=== PATIENT | female | born 1980 | race Caucasian/White ===

== ENCOUNTER 2017-08-25 10:31 | Outpatient (CLI) | payer OTHER, SELFPAY ==
--- NOTE | 2017-08-25 13:13 | ULT ---
OB ULTRASOUND HISTORY: female. Evaluate size and dates. COMPARISON: None. TECHNIQUE: Multiplanar spencer-scale and color Doppler images were obtained in a transabdominal ultrasound. FINDINGS: A single live intrauterine is seen with a heart rate of 141 beats per minute. A aparna vey was performed, which was unremarkable. The head, intracranial structures, spine, heart, diaphra gm, kidneys, umbilical cord, umbilical cord insertion, stomach, face, and extremities were normal. The average age of the fetus based off today's examination is 19 weeks and 3 days. The following me asurements were taken and dates based off these measurements are as follows: BPD: 4.47 cm (19 weeks 4 days) HC: 16.92 cm (19 weeks 4 days) AC: 14.39 cm (19 weeks 5 days) FL: 3.07 cm (19 weeks 4 days) The placenta is fundal in location without evidence of placenta previa. Amniotic fluid volume is michel bjectively within normal limits. The cervix is normal in length. IMPRESSION: Single live intrauterine with an estimated age of 19 weeks and 3 days. POS: [facility]
== END 2017-08-25 10:32 | disposition home or self-care (01) ==
LOC: ULT 10:31
PROVIDERS: ATTEND Family Medicine
DX: O09.42 Supervision of pregnancy with grand multiparity, second trimester (principal); Z3A.19 19 weeks gestation of pregnancy
CPT/HCPCS: 76805

== ENCOUNTER 2018-01-03 13:15 | Emergency (ER) | payer MEDICAID | END 2018-01-03 13:40 | disposition home or self-care (01) | LOC: SCSER 13:15 | DX: O47.1 False labor at or after 37 completed weeks of gestation (principal); O99.343 Other mental disorders complicating pregnancy, third trimester; F41.9 Anxiety disorder, unspecified; F32.9 Major depressive disorder, single episode, unspecified; F43.10 Post-traumatic stress disorder, unspecified; O99.333 Smoking (tobacco) complicating pregnancy, third trimester; Z3A.39 39 weeks gestation of pregnancy ==

== ENCOUNTER 2020-06-14 20:47 | Emergency (ER) | payer MEDICAID, SELFPAY | END 2020-06-14 21:59 | disposition home or self-care (01) | LOC: ERS 20:47 | DX: K02.9 Dental caries, unspecified (principal); R22.0 Localized swelling, mass and lump, head; F31.9 Bipolar disorder, unspecified; F17.210 Nicotine dependence, cigarettes, uncomplicated | CPT/HCPCS: 99282 ==

== ENCOUNTER 2020-09-04 11:18 | Outpatient (CLI) | payer OTHER ==
--- NOTE | 2020-09-04 13:27 | RAD ---
LUMBAR SPINE 2 VIEWS: Date: 09/04/2020 HISTORY: Back pain. Disability. COMPARISON: 04/09/2019. FINDINGS: Lumbar vertebra maintain normal height and alignment. The disc spaces are preserved. No evidence of s pondylolisthesis. Minimal degenerative spurring. IMPRESSION: Unremarkable lumbar spine. POS: [facility]
== END 2020-09-04 11:19 | disposition home or self-care (01) ==
LOC: BICRAD 11:18
PROVIDERS: ATTEND Internal Medicine
DX: Z02.71 Encounter for disability determination (principal)
CPT/HCPCS: 72100

== ENCOUNTER 2020-11-15 22:43 | Emergency (ER) | payer MEDICAID ==
[2020-11-16] MEDS ORDERED: Ketorolac Tromethamine 30 MG/ML VIAL ONE (00:25)
== END 2020-11-16 00:47 | disposition home or self-care (01) ==
LOC: ERS 22:43
DX: K02.9 Dental caries, unspecified (principal); F17.210 Nicotine dependence, cigarettes, uncomplicated
CPT/HCPCS: 96372; 99282; J1885

== ENCOUNTER 2023-10-17 22:14 | Emergency (ER) | payer SELFPAY ==
[2023-10-17] MEDS ORDERED: Acetaminophen 325 MG TAB ONE (23:35)
[2023-10-17] MEDS ORDERED: Ketorolac Tromethamine 30 MG/ML VIAL ONE (23:35)
[2023-10-17 23:39] LABS: #Eosinphils 0.1 thou/uL (0.0-0.7); #Monocytes 0.4 thou/uL (0.11-0.59); #Neutrophils 3.1 thou/uL (1.40-6.50); %Basophils 0.3 % (0.0-1.0); %Eosinophils 1.6 % (0.0-10.0); %Lymphocytes 46.9 % (21.0-51.0); %Monocytes 5.5 % (0.0-10.0); %Neutrophils 45.6 % (42.0-75.0); Hematocrit 37.3 % (36.0-47.0); Hemoglobin 11.9 g/dL (12.0-16.0); Mean Corpuscular HGB CONC 31.9 g/dL (32.0-36.0); Mean Corpuscular Hemoglobin 27.7 pg (27.0-31.0); Mean Corpuscular Volume 86.9 fl (78.0-98.0); Mean Platelet Volume 9.8 fL (7.4-10.4); Platelet Count 238 10x3/uL (130-400); RBC Distribution Width 14.4 % (11.5-14.5); Red Blood Cell (RBC) Count 4.29 mill/uL (4.20-5.40); White Blood Cell (WBC) Count 6.8 10x3/uL (4.8-10.8)
[2023-10-18 00:06] LABS: ALT (SGPT) 8 U/L (8-55); AST (SGOT) 11 U/L (5-34); Albumin 3.7 g/dL (3.5-5.0); Alkaline Phosphatase 61 U/L (40-110); Anion Gap 12 mmol/L (10-20); BUN (Urea Nitrogen) 8 mg/dL (7.0-18.7); Bilirubin, Total 0.3 mg/dL (0.2-1.2); Calc. Creatinine Clearance 0 mL/min (70-130); Calcium 9.3 mg/dL (7.8-10.44); Carbon Dioxide 25 mmol/L (22-29); Chloride 105 mmol/L (98-107); Estimated GFR 77; Globulin 2.4 g/dL (2.4-3.5); Glucose 91 mg/dL (70-105); Potassium 4.2 mmol/L (3.5-5.1); Protein, Total 6.1 g/dL (6.0-8.3); Sodium 138 mmol/L (136-145)
[2023-10-18 01:14] LABS: Bacteria/HPF None Seen HPF (None Seen); Bilirubin Negative (Negative); Blood, Urine Negative (Negative); CAUTI Indications for Culture Pelvic or flank pain; Clarity Clear (Clear); Glucose, Urine (Dipstick) Normal (Negative); Ketone, Urine Trace mg/dL (Negative); Leukocyte Negative Leu/uL (Negative); Nitrite Negative (Negative); Protein, Urine (Dipstick) 30 mg/dL (Neg-Trace); RBC/HPF 0-3 HPF (0-3); Specific Gravity, Urine 1.043 (1.002-1.036); Urobilinogen 3 mg/dL (Less than 2); WBC/HPF 0-3 HPF (0-3); pH, Urine 5.5 (5.0-9.0)
[2023-10-18 01:15] LABS: Urine Culture Reflex No No
== END 2023-10-18 02:00 | disposition home or self-care (01) ==
LOC: ERS 22:14
DX: M54.50 Low back pain, unspecified (principal); R32 Unspecified urinary incontinence; F17.210 Nicotine dependence, cigarettes, uncomplicated
CPT/HCPCS: 36415; 72148; 81001; 96374; J1885